=== PATIENT | male | born 1995 | race Caucasian/White ===

== ENCOUNTER 2017-02-25 22:12 | Emergency (ER) | payer BC, OTHER ==
[~2017-02-25] VITALS: Ht 185.4 cm; Wt 75.0 kg
[~2017-02-25 22:12] MED LIST: CITA40TA12 PO
[2017-02-25 22:22] VITALS: TEMP 36.4; Ht 185.4 cm; Wt 75.0 kg
[2017-02-25] MEDS ORDERED: AMOXICILLIN 500 MG CAP PO STA (22:51)
[2017-02-25] MEDS ORDERED: AMOX500T3 PO (22:57)
--- NOTE | 2017-02-25 22:57 | EMERGENCY ROOM VISIT NOTE ---
History First contact with patient: 22:41 Chief Complaint: HEAD PAIN Stated Complaint: EXTREME PAIN IN EAR AND HEAD History of Present Illness The patient is a 21 year old male who presents to the Emergency Room with complaints of right ear pain and headache. The patient states that he has had an earache in his right ear which has been gradually worsening throughout the day. He describes this as a sharp pain and rates the discomfort an 8/10. The patient states that he has developed a headache which she describes as throbbing. He used some rycc-djk-diknoay eardrops without relief. He has been taking Tylenol for pain without relief. He reports some nausea but no vomiting. He denies a fever or sore throat. He denies neck pain/stiffness. Review of Systems A complete 10 point review of systems was reviewed with the patient with pertinent positives and negatives as per history of present illness. All else were negative. Past Medical/Surgical History Medical Problems: (1) Depression (2) Suicidal ideation Family History Patient reports no known family medical history. 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 Vital signs stable. GENERAL: This is a 21-year-old male, in no acute distress, nondiaphoretic, well- developed well-nourished. SKIN: The skin was without rashes. HEAD: Normocephalic atraumatic. EARS: External auditory canals clear. The right tympanic membrane is erythematous and bulging. The left tympanic membrane is normal. EYES: Pupils equal round and reactive to light and accommodation. NOSE: Patent, turbinates without inflammation or discharge. MOUTH: Mucous membranes moist. Tonsils are not enlarged. Pharynx without erythema or exudate. NECK: Supple without nuchal rigidity. No lymphadenopathy. HEART: Regular rate and rhythm without murmurs gallops or rubs. LUNGS: Clear to auscultation bilaterally without wheezes, rales or rhonchi. NEURO: Patient was alert and oriented to person place and time. Medical Decision & Procedures Medications Administered Medications (Trade) Dose Ordered Sig/Zayra Route Start Time Stop Time Status Last Admin Dose Admin Acetaminophen/ Hydrocodone Bitart (Ferris 5/325mg Home Pack) 1 homepack UD ONCE PO 02/25/17 23:00 02/25/17 23:01 DC 02/25/17 23:02 1 HOMEPACK Amoxicillin (Amoxil Cap) 500 mg STK-MED ONCE PO 02/25/17 23:00 02/25/17 23:01 DC 02/25/17 23:02 500 MG Medical Decision Differential diagnosis includes otitis media, otitis externa, migraine headache , tension headache, among others. The patient was evaluated as above. He appears to have a right otitis media. He will be placed on amoxicillin for this. He was given a home pack of Ferris for symptomatic relief. He was advised to alternate Tylenol and ibuprofen at home for pain. He verbalized understanding of my assessment and treatment plan and was discharged home in good condition. Medication Reconcilliation Current Medication List: was personally reviewed by me Blood Pressure Screening Patient's blood pressure: Normal blood pressure Impression Primary Impression: Otitis media Departure Information Dispostion Home / Self-Care Condition GOOD Prescriptions Amoxicillin (AMOXIL) 500 Mg Tab 1 TAB PO TID for 9 Days, #27 TAB Prov: Romelia Thompson .NAZANIN 02/25/17 Referrals [facility] (PCP) Patient Instructions My [facility] Additional Instructions You have been treated in the Emergency Department for an Inner Ear Infection ( Otitis Media). You were prescribed amoxicillin to be taken as prescribed. This is an antibiotic. All antibiotics have the potential to cause diarrhea. Stop this medication and contact a medical provider if you were to develop any significant adverse side effects including: wheezing, shortness of breath, passing out, vomiting, or a diffuse rash. Always take antibiotics as directed and COMPLETE the ENTIRE course regardless of the improvement of your symptoms. You have been given Ferris to be used for pain control. Take 1-2 tablets every 4 -6 hours as needed for pain. This is a narcotic medication. You cannot drive or consume alcohol while on this medicine. This medicine should only be used for pain that cannot be controlled with pypm-uhz-[id number] pain medicines. For pain and fever control, you can use the following ybra-hsd-ommhbpa medicines (if >12 yo): - Regular strength (325mg/tab) Tylenol (acetaminophen) 2 tabs every 4-6 hours as needed. Do not exceed 12 tablets in a 24 hour period. Avoid taking more than 4 grams (4000 mg) of Tylenol per day. This includes any other sources of acetaminophen you may take on a regular basis. - Regular strength (200 mg/tab) Advil (ibuprofen) 1-2 tabs every 4-6 hours as needed. Do not exceed a dose of 3200 mg per day. You should follow-up with your Primary Care Provider from today's Emergency Department visit. Return to the emergency department if you develop the following symptoms despite treatment course outlined above: headache, fever, intractable pain, increased redness, swelling, or purulent discharge. Problem Qualifiers Primary Impression: Otitis media Otitis media type: suppurative Chronicity: acute Laterality: right Recurrence: not specified as recurrent Spontaneous tympanic membrane rupture: without spontaneous rupture Qualified Codes: H66.001 - Acute suppurative otitis media without spontaneous rupture of ear drum, right ear
[2017-02-25] MEDS ORDERED: AMOXICILLIN 250 MG CAP PO ONE (23:00)
[2017-02-25] MEDS ORDERED: NORCO 5/325MG HOME PACK PO ONE (23:00)
[2017-02-25 23:03] VITALS: BP 120/93; PULSE 64; O2SAT 98
== END 2017-02-25 23:08 | disposition home or self-care (01) ==
LOC: C.EDB 22:13 → C.EDC 23:08
DX: H66.001 Acute suppurative otitis media without spontaneous rupture of ear drum, right ear (principal); F32.9 Major depressive disorder, single episode, unspecified; F17.200 Nicotine dependence, unspecified, uncomplicated; Z79.899 Other long term (current) drug therapy